=== PATIENT | male | born 1950 | race Caucasian/White ===

== ENCOUNTER 2017-12-17 10:06 | Inpatient (IN) | payer MEDICARE, MEDICAID ==
[2017-12-16 11:30] LABS: BASOPHILS # (AUTO) 0.1 X10'3 (0-0.2); BASOPHILS % (AUTO) 0.9 % (0-1); EOSINOPHILS # (AUTO) 0.4 X10'3 (0-0.9); EOSINOPHILS % (AUTO) 4.2 % (0-6); LYMPHOCYTES # (AUTO) 2.1 X10'3 (1.1-4.8); MEAN CORPUSCULAR HEMOGLOBIN 28.9 PG (27.0-31.0); MEAN CORPUSCULAR HGB CONC 32.9 % (33.0-36.5); MEAN CORPUSCULAR VOLUME 87.8 FL (78-98); MEAN PLATELET VOLUME 7.2 FL (7.4-10.4); MONOCYTES # (AUTO) 0.6 X10'3 (0-0.9); MONOCYTES % (AUTO) 7.6 % (2-12); NEUTROPHILS # (AUTO) 5.2 X10'3 (1.8-7.7); NEUTROPHILS % (AUTO) 62.3 % (42-75); PRE OP HEMATOCRIT 42.8 % (42.0-52.0); PRE OP HEMOGLOBIN 14.1 g/dL (14.0-17.9); PRE OP PLATELET COUNT 266 X10'3 (140-440); RED BLOOD COUNT 4.87 X10'6 (4.70-6.10); RED CELL DISTRIBUTION WIDTH 15.2 % (11.5-14.5)
[2017-12-16 11:32] LABS: COLOR,URINE YELLOW (Yellow); GLUCOSE, URINE NEGATIVE (Neg); KETONES,URINE NEGATIVE (Neg); LEUKOCYTE ESTERASE ,URINE NEGATIVE (Neg); NITRITES, URINE NEGATIVE (Neg); OCCULT BLOOD,URINE MODERATE (Neg); PH,URINE 5.5 (4.8-8.0); PROTEIN,URINE TRACE mg/dl (Neg); UROBILINOGEN,URINE 0.2 E.U/dL (0.2-1.0)
[2017-12-16 11:34] LABS: CLARITY,URINE SLIGHTLY CLOUDY (Clear); UA COLLECTION TYPE CLN CATCH MIDSTREAM
[2017-12-16 11:43] LABS: PRE OP INR 0.9 INR; PRE OP PROTIME 9.8 SECONDS (9.0-12.0)
[2017-12-16 11:45] LABS: ALBUMIN 3.7 G/DL (3.4-5.0); ALKALINE PHOSPHATASE 83 IU/L (46-116); BLOOD UREA NITROGEN 7 MG/DL (7-18); BUN/CREATININE RATIO 8.4 (5.4-32.0); CALCIUM 8.8 MG/DL (8.5-10.1); CHLORIDE 103 MMOL/L (99-107); CREATININE 0.83 MG/DL (0.60-1.10); PRE OP ALT 22 U/L (30-65); PRE OP ANION GAP 8 (8-16); PRE OP AST 18 U/L (10-37); PRE OP BILIRUB, TOTAL 0.9 MG/DL (0.0-1.0); PRE OP GLUCOSE 109 MG/DL (70-104); PRE OP POTASSIUM 3.8 MMOL/L (3.4-5.1); PRE OP SODIUM 141 MMOL/L (135-145); TOTAL PROTEIN 7.4 G/DL (6.4-8.2); eGFR > 90 ML/MIN
[2017-12-16 11:45] LABS: BACTERIA,URINE FEW /HPF (Neg); MUCUS STRANDS MODERATE /LPF (Neg); RBC,URINE NONE SEEN /HPF (0-2); SQUAMOUS EPITHELIAL CELL,UR FEW /LPF (FEW)
[~2017-12-17] VITALS: Ht 167.6 cm; Wt 65.4 kg
[~2017-12-17 10:06] MED LIST: ESCI10TA PO; ROSU10TA PO; clindamycin-Cleocin 900mg/D5W 50 ML IV ONE; famotidine 20mg tablet PO ONE; ringers solution, lacted 1,000 ML IV SCH
[2017-12-20] VITALS (12 sets, daily range): BP systolic 145–165; BP diastolic 64–86
[2017-12-20] MEDS ORDERED: ringers solution, lacted 1,000 ML IV SCH ×2 (06:30→17:05)
[2017-12-20] MEDS ORDERED: clindamycin-Cleocin 900mg/D5W 50 ML IV ONE (06:30)
[2017-12-20] MEDS ORDERED: famotidine 20mg tablet PO ONE (06:30)
[2017-12-20] MEDS ORDERED: LIDOcaine 1% (10mg/ml) 2ml vial ONE (11:17)
[2017-12-20] MEDS ORDERED: iohexol 300mg/ml 100ml inj. ONE (11:32)
[2017-12-20] MEDS ORDERED: midazolam 2 mg/2 ml injection ONE (13:58)
[2017-12-20] MEDS ORDERED: fentaNYL /PF 50mcg/ml 5ml ampule ONE (13:59)
[2017-12-20] MEDS ORDERED: LIDOcaine 2% (20mg/ml) 5ml vial ONE (14:00)
[2017-12-20] MEDS ORDERED: propofol inj 20 ML IV ONE (14:00)
[2017-12-20] MEDS ORDERED: rocuronium 10mg/ml inj IV ONE (14:00)
[2017-12-20] MEDS ORDERED: epiNEPHrine 0.1mg/ml 10ml syringe ONE (14:36)
[2017-12-20] MEDS ORDERED: sevoflurane 250ml liquid IH ONE (14:36)
[2017-12-20] MEDS ORDERED: propofol 10mg/ml 20ml vial IV ONE (14:36)
[2017-12-20] MEDS ORDERED: esmolol 10mg/ml inj IV ONE (14:36)
[2017-12-20] MEDS ORDERED: fentaNYL/PF 50MCG/1 ML 2ML syringe ONE ×2 (16:19→18:16)
[2017-12-20] MEDS ORDERED: ondansetron/PF 4mg/2ml inj IV PRN ×2 (17:05→19:20)
[2017-12-20] MEDS ORDERED: proCHLORperazine 10 MG/2 ml inj IV PRN (17:05)
[2017-12-20] MEDS ORDERED: morphine 4 MG/ML inj SYRINge IV PRN ×4 (17:05→19:20)
[2017-12-20] MEDS ORDERED: meperidine/PF 25mg/ml syringe IV PRN ×3 (17:05)
[2017-12-20] MEDS ORDERED: naloxone 2mg/2ml inj 1.5 MG in normal saline 500ml IV soln 500 ML IV PRN (17:06)
[2017-12-20] MEDS ORDERED: morphine/PF injection 20 MG, BUPIVAcaine 0.5% inj/PF 250 MG in normal saline 250ml IV s... EPI SCH (17:06)
[2017-12-20] MEDS ORDERED: sugammadex 200mg/2ml injection IV ONE (18:59)
[2017-12-20] MEDS ORDERED: metoclopramide 5 mg/ml inj IV PRN (19:20)
[2017-12-20] MEDS ORDERED: naloxone 0.4 mg/ml inj IV PRN (19:20)
[2017-12-20] MEDS ORDERED: CADD PCA waste documentation MC PRN (19:20)
[2017-12-20] MEDS ORDERED: HYDROcodone/acetaminophen 10/325mg tab PO PRN ×2 (19:20)
[2017-12-20] MEDS ORDERED: albuterol 2.5 MG/3 ML nebule NEB PRN (19:20)
[2017-12-20] MEDS ORDERED: ipratropium/albuterol 3ml nebule ONE (19:24)
[2017-12-20] MEDS ORDERED: ipratropium/albuterol 3ml nebule NEB PRN (19:25)
[2017-12-20] MEDS ORDERED: ondansetron/PF 4mg/2ml inj ONE (19:35)
[2017-12-20] MEDS ORDERED: glycopyrrolate 0.2mg/ml inj ONE (19:35)
[2017-12-20] MEDS ORDERED: neostigmine methylsulfate 1 MG/ML 10ml vial ONE (19:35)
[2017-12-20] MEDS ORDERED: labetalol 5mg/ml 20ml inj. IV ONE (19:36)
[2017-12-20 19:46] LABS: ABG BASE EXCESS -3.1 mmol/L (-2.0-3.0); ABG HCO3 23.3 mmol/L (22.0-26.0); ABG PH (T) 7.313 (7.350-7.450); ABG PO2 (T) 162.1 mmHg (83-108); FCOHb 0.6 % (0.5-1.5); FLOW 6 L/min; FMetHb 0.3 % (0.3-1.12); FO2Hb 98.1 % (94-100); RESPIRATORY RATE (OBSERVED) 12 b/min; TOTAL HEMOGLOBIN 13.5 G/dl (14.0-18.0)
[2017-12-20 19:47] LABS: BASOPHILS # (AUTO) 0.1 X10'3 (0-0.2); BASOPHILS % (AUTO) 0.8 % (0-1); EOSINOPHILS # (AUTO) 0.2 X10'3 (0-0.9); EOSINOPHILS % (AUTO) 1.9 % (0-6); HEMATOCRIT 38.4 % (42.0-52.0); HEMOGLOBIN 12.6 g/dl (14.0-17.9); LYMPHOCYTES # (AUTO) 0.9 X10'3 (1.1-4.8); MEAN CORPUSCULAR HEMOGLOBIN 28.8 PG (27.0-31.0); MEAN CORPUSCULAR HGB CONC 32.9 % (33.0-36.5); MEAN CORPUSCULAR VOLUME 87.8 FL (78-98); MEAN PLATELET VOLUME 7.3 FL (7.4-10.4); MONOCYTES # (AUTO) 0.5 X10'3 (0-0.9); MONOCYTES % (AUTO) 3.7 % (2-12); NEUTROPHILS % (AUTO) 86.6 % (42-75); PLATELET COUNT 261 X10'3 (140-440); RED BLOOD COUNT 4.37 X10'6 (4.70-6.10); RED CELL DISTRIBUTION WIDTH 15.1 % (11.5-14.5); WHITE BLOOD COUNT 12.7 X10'3 (4.5-11.0)
[2017-12-20 19:53] LABS: ANION GAP 6 (8-16); BLOOD UREA NITROGEN 6 MG/DL (7-18); BUN/CREATININE RATIO 8.3 (5.4-32.0); CALCIUM 7.9 MG/DL (8.5-10.1); CHLORIDE 105 MMOL/L (99-107); CREATININE 0.72 MG/DL (0.60-1.10); GLUCOSE 161 MG/DL (70-104); MAGNESIUM 1.7 MG/DL (1.5-2.4); POTASSIUM 3.8 MMOL/L (3.5-5.1); SODIUM 137 MMOL/L (135-145); TOTAL CARBON DIOXIDE 26.3 MMOL/L (24-32); eGFR > 90 ML/MIN
[2017-12-20] MEDS: clindamycin 600mg/D5W 50ml 50 ML IV SCH (21:10)
[2017-12-20] MEDS: potassium cl 20mEq in 1/2 NS 1,000 ML IV SCH (21:53)
[2017-12-21] VITALS (24 sets, daily range): BP systolic 123–166; BP diastolic 64–90
[2017-12-21 02:08] LABS: BASOPHILS % (AUTO) 0.3 % (0-1); EOSINOPHILS # (AUTO) 0.1 X10'3 (0-0.9); EOSINOPHILS % (AUTO) 0.9 % (0-6); HEMATOCRIT 39.4 % (42.0-52.0); LYMPHOCYTES # (AUTO) 0.7 X10'3 (1.1-4.8); LYMPHOCYTES % (AUTO) 5.9 % (21-51); MEAN CORPUSCULAR HEMOGLOBIN 28.9 PG (27.0-31.0); MEAN CORPUSCULAR HGB CONC 32.9 % (33.0-36.5); MEAN CORPUSCULAR VOLUME 87.7 FL (78-98); MEAN PLATELET VOLUME 7.6 FL (7.4-10.4); MONOCYTES # (AUTO) 0.7 X10'3 (0-0.9); MONOCYTES % (AUTO) 5.8 % (2-12); NEUTROPHILS % (AUTO) 87.1 % (42-75); PLATELET COUNT 257 X10'3 (140-440); RED BLOOD COUNT 4.49 X10'6 (4.70-6.10); RED CELL DISTRIBUTION WIDTH 14.7 % (11.5-14.5); WHITE BLOOD COUNT 12.6 X10'3 (4.5-11.0)
[2017-12-21 02:16] LABS: PHOSPHORUS 3.6 MG/DL (2.3-4.5); POTASSIUM 3.9 MMOL/L (3.5-5.1)
[2017-12-21] MEDS: clindamycin 600mg/D5W 50ml 50 ML IV SCH ×4 (02:16→19:43)
[2017-12-21 02:17] LABS: PROTHROMBIN TIME 10.1 SECONDS (9.0-12.0)
[2017-12-21 02:26] LABS: ANION GAP 9 (8-16); BLOOD UREA NITROGEN 8 MG/DL (7-18); BUN/CREATININE RATIO 11.1 (5.4-32.0); CHLORIDE 105 MMOL/L (99-107); CREATININE 0.72 MG/DL (0.60-1.10); GLUCOSE 182 MG/DL (70-104); SODIUM 141 MMOL/L (135-145); TOTAL CARBON DIOXIDE 26.7 MMOL/L (24-32); eGFR > 90 ML/MIN
[2017-12-21 02:45] LABS: MAGNESIUM 1.5 MG/DL (1.5-2.4)
[2017-12-21] MEDS ORDERED: MORPHINE EPI SCH ×2 (12:05→12:10)
[2017-12-21] MEDS ORDERED: NORMAL SALINE EPI SCH ×2 (12:05→12:10)
[2017-12-21] MEDS ORDERED: HYDROcodone/acetaminophen 10/325mg tab PO PRN (13:00)
[2017-12-21] MEDS ORDERED: furosemide 20 MG/2 ML vial IV ONE (13:00)
[2017-12-21] MEDS ORDERED: ipratropium/albuterol 3ml nebule NEB SCH (13:02)
[2017-12-21] MEDS: ipratropium/albuterol 3ml nebule NEB SCH ×3 (13:17→23:20)
[2017-12-21] MEDS: HYDROcodone/acetaminophen 10/325mg tab PO PRN (13:18)
[2017-12-21] MEDS: furosemide 20 MG/2 ML vial IV SCH (19:43)
[2017-12-21] MEDS: potassium cl 20mEq in 1/2 NS 1,000 ML IV SCH (19:49)
[2017-12-21] MEDS: ringers solution, lacted 1,000 ML IV SCH (19:49)
[2017-12-22] VITALS (24 sets, daily range): BP systolic 107–145; BP diastolic 61–84
[2017-12-22] MEDS: clindamycin 600mg/D5W 50ml 50 ML IV SCH ×4 (01:32→20:23)
[2017-12-22] MEDS: ringers solution, lacted 1,000 ML IV SCH (01:36)
[2017-12-22] MEDS: ipratropium/albuterol 3ml nebule NEB SCH ×6 (03:12→23:10)
[2017-12-22 05:02] LABS: BASOPHILS % (AUTO) 0.3 % (0-1); EOSINOPHILS # (AUTO) 0.2 X10'3 (0-0.9); EOSINOPHILS % (AUTO) 1.3 % (0-6); HEMATOCRIT 42.3 % (42.0-52.0); HEMOGLOBIN 13.8 g/dl (14.0-17.9); LYMPHOCYTES # (AUTO) 1.5 X10'3 (1.1-4.8); LYMPHOCYTES % (AUTO) 10.3 % (21-51); MEAN CORPUSCULAR HEMOGLOBIN 28.7 PG (27.0-31.0); MEAN CORPUSCULAR HGB CONC 32.5 % (33.0-36.5); MEAN CORPUSCULAR VOLUME 88.2 FL (78-98); MEAN PLATELET VOLUME 7.7 FL (7.4-10.4); MONOCYTES # (AUTO) 1.1 X10'3 (0-0.9); MONOCYTES % (AUTO) 7.4 % (2-12); NEUTROPHILS # (AUTO) 11.7 X10'3 (1.8-7.7); NEUTROPHILS % (AUTO) 80.7 % (42-75); PLATELET COUNT 233 X10'3 (140-440); RED BLOOD COUNT 4.79 X10'6 (4.70-6.10); RED CELL DISTRIBUTION WIDTH 15.3 % (11.5-14.5); WHITE BLOOD COUNT 14.5 X10'3 (4.5-11.0)
[2017-12-22 05:07] LABS: ALBUMIN 2.7 G/DL (3.4-5.0); ANION GAP 7 (8-16); BLOOD UREA NITROGEN 10 MG/DL (7-18); BUN/CREATININE RATIO 11.9 (5.4-32.0); CALCIUM 8.2 MG/DL (8.5-10.1); CHLORIDE 99 MMOL/L (99-107); CREATININE 0.84 MG/DL (0.60-1.10); GLUCOSE 123 MG/DL (70-104); MAGNESIUM 1.6 MG/DL (1.5-2.4); PHOSPHORUS 3.2 MG/DL (2.3-4.5); POTASSIUM 3.5 MMOL/L (3.5-5.1); PROTHROMBIN TIME 10.4 SECONDS (9.0-12.0); SODIUM 139 MMOL/L (135-145); TOTAL CARBON DIOXIDE 32.6 MMOL/L (24-32); eGFR > 90 ML/MIN
[2017-12-22] MEDS: furosemide 20 MG/2 ML vial IV SCH ×2 (07:37→20:23)
[2017-12-22] MEDS: HYDROcodone/acetaminophen 10/325mg tab PO PRN (07:38)
[2017-12-22] MEDS ORDERED: potassium Cl 20 mEq SR tablet PO PRN (09:20)
[2017-12-22] MEDS ORDERED: HYDROmorphone/NS 1 mg/ml CADD 50 ML IV SCH (09:20)
[2017-12-22] MEDS: magnesium 1gm/100ml D5W IVPB 100 ML IV SCH ×4 (10:55→14:22)
[2017-12-22] MEDS: potassium Cl 20 mEq SR tablet PO PRN ×3 (10:55→20:23)
[2017-12-22] MEDS: HYDROmorphone/NS 1 mg/ml CADD 50 ML IV SCH ×7 (13:00→23:00)
[2017-12-22] MEDS: lactobacillus rhamnosus 10,000 MMU CELLS/CAPSULE PO SCH (20:23)
[2017-12-23] VITALS (25 sets, daily range): BP systolic 11–128; BP diastolic 61–81
[2017-12-23] MEDS: HYDROmorphone/NS 1 mg/ml CADD 50 ML IV SCH ×12 (01:00→23:00)
[2017-12-23] MEDS: clindamycin 600mg/D5W 50ml 50 ML IV SCH ×4 (01:27→20:06)
[2017-12-23 03:09] LABS: BASOPHILS % (AUTO) 0.2 % (0-1); EOSINOPHILS # (AUTO) 0.2 X10'3 (0-0.9); EOSINOPHILS % (AUTO) 1.9 % (0-6); HEMATOCRIT 38.2 % (42.0-52.0); HEMOGLOBIN 12.6 g/dl (14.0-17.9); LYMPHOCYTES # (AUTO) 1.5 X10'3 (1.1-4.8); LYMPHOCYTES % (AUTO) 11.8 % (21-51); MEAN CORPUSCULAR HEMOGLOBIN 28.8 PG (27.0-31.0); MEAN CORPUSCULAR VOLUME 87.2 FL (78-98); MEAN PLATELET VOLUME 7.5 FL (7.4-10.4); MONOCYTES % (AUTO) 8.3 % (2-12); NEUTROPHILS # (AUTO) 9.7 X10'3 (1.8-7.7); NEUTROPHILS % (AUTO) 77.8 % (42-75); PLATELET COUNT 242 X10'3 (140-440); RED BLOOD COUNT 4.38 X10'6 (4.70-6.10); RED CELL DISTRIBUTION WIDTH 14.8 % (11.5-14.5); WHITE BLOOD COUNT 12.5 X10'3 (4.5-11.0)
[2017-12-23 03:11] LABS: ALBUMIN 2.3 G/DL (3.4-5.0); ANION GAP 1 (8-16); BLOOD UREA NITROGEN 10 MG/DL (7-18); BUN/CREATININE RATIO 12.5 (5.4-32.0); CALCIUM 8.1 MG/DL (8.5-10.1); CHLORIDE 96 MMOL/L (99-107); GLUCOSE 125 MG/DL (70-104); MAGNESIUM 2.5 MG/DL (1.5-2.4); PHOSPHORUS 2.9 MG/DL (2.3-4.5); POTASSIUM 3.8 MMOL/L (3.5-5.1); SODIUM 135 MMOL/L (135-145); TOTAL CARBON DIOXIDE 38.2 MMOL/L (24-32); eGFR > 90 ML/MIN
[2017-12-23] MEDS: ipratropium/albuterol 3ml nebule NEB SCH ×6 (03:30→23:24)
[2017-12-23 03:39] LABS: PROTHROMBIN TIME 9.7 SECONDS (9.0-12.0)
[2017-12-23] MEDS: potassium cl 20mEq in 1/2 NS 1,000 ML IV SCH (07:49)
[2017-12-23] MEDS: K and/or MAG REPLACEMENT MC SCH (08:00)
[2017-12-23] MEDS: furosemide 20 MG/2 ML vial IV SCH ×2 (08:27→20:06)
[2017-12-23] MEDS: lactobacillus rhamnosus 10,000 MMU CELLS/CAPSULE PO SCH ×2 (08:27→20:06)
[2017-12-23 09:25] LABS: HEMOGLOBIN A1C 5.4 % (4.5-6.2)
[2017-12-23] MEDS ORDERED: ketorolac tromethamine 15mg/ml inj. IV PRN (13:00)
[2017-12-23] MEDS: HYDROcodone/acetaminophen 10/325mg tab PO PRN (14:16)
[2017-12-23] MEDS: ringers solution, lacted 1,000 ML IV SCH (17:45)
[2017-12-24] VITALS (23 sets, daily range): BP systolic 95–134; BP diastolic 59–77
[2017-12-24] MEDS: HYDROmorphone/NS 1 mg/ml CADD 50 ML IV SCH ×12 (01:00→23:00)
[2017-12-24] MEDS: clindamycin 600mg/D5W 50ml 50 ML IV SCH ×4 (01:52→19:23)
[2017-12-24 02:54] LABS: BASOPHILS # (AUTO) 0.1 X10'3 (0-0.2); BASOPHILS % (AUTO) 0.8 % (0-1); EOSINOPHILS # (AUTO) 0.5 X10'3 (0-0.9); EOSINOPHILS % (AUTO) 5.3 % (0-6); HEMATOCRIT 36.2 % (42.0-52.0); HEMOGLOBIN 11.9 g/dl (14.0-17.9); LYMPHOCYTES # (AUTO) 1.2 X10'3 (1.1-4.8); LYMPHOCYTES % (AUTO) 12.3 % (21-51); MEAN CORPUSCULAR HEMOGLOBIN 28.8 PG (27.0-31.0); MEAN CORPUSCULAR HGB CONC 32.9 % (33.0-36.5); MEAN CORPUSCULAR VOLUME 87.6 FL (78-98); MEAN PLATELET VOLUME 7.2 FL (7.4-10.4); MONOCYTES % (AUTO) 9.8 % (2-12); NEUTROPHILS # (AUTO) 7.2 X10'3 (1.8-7.7); NEUTROPHILS % (AUTO) 71.8 % (42-75); PLATELET COUNT 262 X10'3 (140-440); RED BLOOD COUNT 4.13 X10'6 (4.70-6.10); RED CELL DISTRIBUTION WIDTH 14.5 % (11.5-14.5); WHITE BLOOD COUNT 10.1 X10'3 (4.5-11.0)
[2017-12-24 03:10] LABS: ALBUMIN 2.1 G/DL (3.4-5.0); ANION GAP 9 (8-16); BLOOD UREA NITROGEN 13 MG/DL (7-18); BUN/CREATININE RATIO 16.5 (5.4-32.0); CALCIUM 8.3 MG/DL (8.5-10.1); CHLORIDE 95 MMOL/L (99-107); CREATININE 0.79 MG/DL (0.60-1.10); GLUCOSE 112 MG/DL (70-104); MAGNESIUM 2.1 MG/DL (1.5-2.4); PHOSPHORUS 4.4 MG/DL (2.3-4.5); POTASSIUM 3.3 MMOL/L (3.5-5.1); SODIUM 137 MMOL/L (135-145); TOTAL CARBON DIOXIDE 32.7 MMOL/L (24-32); eGFR > 90 ML/MIN
[2017-12-24] MEDS: ipratropium/albuterol 3ml nebule NEB SCH ×6 (03:21→22:59)
[2017-12-24] MEDS: potassium Cl 20 mEq SR tablet PO PRN ×3 (05:09→13:35)
[2017-12-24 06:06] LABS: INR 0.9 INR; PROTHROMBIN TIME 9.5 SECONDS (9.0-12.0)
[2017-12-24] MEDS: lactobacillus rhamnosus 10,000 MMU CELLS/CAPSULE PO SCH ×2 (07:29→19:24)
[2017-12-24] MEDS: furosemide 20 MG/2 ML vial IV SCH ×2 (07:29→19:24)
[2017-12-24] MEDS: HYDROcodone/acetaminophen 10/325mg tab PO PRN ×2 (07:30→19:25)
[2017-12-24] MEDS: enoxaparin 40mg/0.4ml syringe SUBCUT SCH (07:33)
[2017-12-24] MEDS: K and/or MAG REPLACEMENT MC SCH (08:00)
[2017-12-24] MEDS: magnesium hydroxide 30ml (MOM) UD suspension PO SCH (19:23)
[2017-12-25] VITALS (24 sets, daily range): BP systolic 97–153; BP diastolic 57–84
[2017-12-25] MEDS: HYDROmorphone/NS 1 mg/ml CADD 50 ML IV SCH ×12 (02:00→23:00)
[2017-12-25] MEDS: clindamycin 600mg/D5W 50ml 50 ML IV SCH ×4 (02:03→20:28)
[2017-12-25] MEDS: ipratropium/albuterol 3ml nebule NEB SCH ×6 (02:55→22:41)
[2017-12-25 04:10] LABS: BASOPHILS % (AUTO) 0.5 % (0-1); EOSINOPHILS # (AUTO) 0.4 X10'3 (0-0.9); HEMATOCRIT 34.8 % (42.0-52.0); HEMOGLOBIN 11.5 g/dl (14.0-17.9); LYMPHOCYTES # (AUTO) 1.4 X10'3 (1.1-4.8); LYMPHOCYTES % (AUTO) 15.9 % (21-51); MEAN CORPUSCULAR HEMOGLOBIN 28.8 PG (27.0-31.0); MEAN CORPUSCULAR VOLUME 87.1 FL (78-98); MEAN PLATELET VOLUME 7.3 FL (7.4-10.4); MONOCYTES % (AUTO) 11.7 % (2-12); NEUTROPHILS # (AUTO) 5.9 X10'3 (1.8-7.7); NEUTROPHILS % (AUTO) 66.9 % (42-75); PLATELET COUNT 296 X10'3 (140-440); RED CELL DISTRIBUTION WIDTH 15.1 % (11.5-14.5); WHITE BLOOD COUNT 8.8 X10'3 (4.5-11.0)
[2017-12-25 04:24] LABS: MAGNESIUM 2.1 MG/DL (1.5-2.4); PHOSPHORUS 4.1 MG/DL (2.3-4.5); POTASSIUM 3.3 MMOL/L (3.5-5.1)
[2017-12-25 04:33] LABS: INR 0.9 INR; PROTHROMBIN TIME 9.5 SECONDS (9.0-12.0)
[2017-12-25] MEDS: potassium cl 20mEq in 1/2 NS 1,000 ML IV SCH (07:49)
[2017-12-25] MEDS: enoxaparin 40mg/0.4ml syringe SUBCUT SCH (08:13)
[2017-12-25] MEDS: lactobacillus rhamnosus 10,000 MMU CELLS/CAPSULE PO SCH ×2 (08:13→20:29)
[2017-12-25] MEDS: potassium Cl 20 mEq SR tablet PO PRN (08:13)
[2017-12-25] MEDS: furosemide 20 MG/2 ML vial IV SCH ×2 (08:13→20:28)
[2017-12-25] MEDS: magnesium hydroxide 30ml (MOM) UD suspension PO SCH ×3 (08:13→20:29)
[2017-12-25] MEDS: K and/or MAG REPLACEMENT MC SCH (08:19)
[2017-12-25] MEDS ORDERED: amiodarone/D5 360MG/200ML BAG 200 ML IV ONE (08:34)
[2017-12-25] MEDS ORDERED: amiodarone 150mg/dext, iso-os 100 ML IV ONE ×2 (08:35)
[2017-12-25] MEDS: amiodarone/D5 360MG/200ML BAG 200 ML IV SCH ×3 (08:59→23:45)
[2017-12-25] MEDS: ringers solution, lacted 1,000 ML IV SCH (17:45)
[2017-12-25] MEDS: CADD PCA waste documentation MC SCH (18:47)
[2017-12-26] VITALS (24 sets, daily range): BP systolic 90–151; BP diastolic 55–78
[2017-12-26] MEDS: HYDROmorphone/NS 1 mg/ml CADD 50 ML IV SCH ×11 (01:00→21:00)
[2017-12-26] MEDS: clindamycin 600mg/D5W 50ml 50 ML IV SCH ×4 (02:00→19:25)
[2017-12-26] MEDS: amiodarone/D5 360MG/200ML BAG 200 ML IV SCH ×4 (02:45→20:57)
[2017-12-26] MEDS: ipratropium/albuterol 3ml nebule NEB SCH ×6 (03:00→22:41)
[2017-12-26 06:14] LABS: BASOPHILS % (AUTO) 0.4 % (0-1); EOSINOPHILS # (AUTO) 0.3 X10'3 (0-0.9); EOSINOPHILS % (AUTO) 3.4 % (0-6); HEMATOCRIT 35.8 % (42.0-52.0); HEMOGLOBIN 11.8 g/dl (14.0-17.9); LYMPHOCYTES % (AUTO) 10.6 % (21-51); MEAN CORPUSCULAR HEMOGLOBIN 28.8 PG (27.0-31.0); MEAN CORPUSCULAR HGB CONC 32.9 % (33.0-36.5); MEAN CORPUSCULAR VOLUME 87.6 FL (78-98); MEAN PLATELET VOLUME 7.4 FL (7.4-10.4); MONOCYTES # (AUTO) 1.1 X10'3 (0-0.9); MONOCYTES % (AUTO) 12.1 % (2-12); NEUTROPHILS # (AUTO) 6.9 X10'3 (1.8-7.7); NEUTROPHILS % (AUTO) 73.5 % (42-75); PLATELET COUNT 304 X10'3 (140-440); RED BLOOD COUNT 4.09 X10'6 (4.70-6.10); RED CELL DISTRIBUTION WIDTH 15.1 % (11.5-14.5); WHITE BLOOD COUNT 9.3 X10'3 (4.5-11.0)
[2017-12-26 06:54] LABS: ANION GAP 5 (8-16); BLOOD UREA NITROGEN 10 MG/DL (7-18); BUN/CREATININE RATIO 13.2 (5.4-32.0); CALCIUM 8.6 MG/DL (8.5-10.1); CHLORIDE 94 MMOL/L (99-107); CREATININE 0.76 MG/DL (0.60-1.10); GLUCOSE 123 MG/DL (70-104); MAGNESIUM 2.3 MG/DL (1.5-2.4); PHOSPHORUS 4.1 MG/DL (2.3-4.5); POTASSIUM 3.6 MMOL/L (3.5-5.1); SODIUM 137 MMOL/L (135-145); TOTAL CARBON DIOXIDE 38.1 MMOL/L (24-32); eGFR > 90 ML/MIN
[2017-12-26 06:59] LABS: INR 0.9 INR; PROTHROMBIN TIME 9.4 SECONDS (9.0-12.0)
[2017-12-26] MEDS: lactobacillus rhamnosus 10,000 MMU CELLS/CAPSULE PO SCH ×2 (08:10→19:27)
[2017-12-26] MEDS: magnesium hydroxide 30ml (MOM) UD suspension PO SCH ×2 (08:10→19:27)
[2017-12-26] MEDS: enoxaparin 40mg/0.4ml syringe SUBCUT SCH (08:11)
[2017-12-26] MEDS: furosemide 20 MG/2 ML vial IV SCH ×2 (08:11→19:26)
[2017-12-26] MEDS ORDERED: amiodarone 200mg tablet PO ONE (11:50)
[2017-12-26] MEDS: amiodarone 200mg tablet PO SCH (19:27)
[2017-12-26] MEDS: HYDROcodone/acetaminophen 10/325mg tab PO PRN (19:28)
[2017-12-27] VITALS (24 sets, daily range): BP systolic 99–135; BP diastolic 55–78
[2017-12-27] MEDS: HYDROmorphone/NS 1 mg/ml CADD 50 ML IV SCH ×7 (00:09→11:00)
[2017-12-27] MEDS: clindamycin 600mg/D5W 50ml 50 ML IV SCH ×2 (01:57→08:04)
[2017-12-27] MEDS: ipratropium/albuterol 3ml nebule NEB SCH ×6 (02:51→23:47)
[2017-12-27] MEDS: amiodarone/D5 360MG/200ML BAG 200 ML IV SCH ×2 (03:01→09:05)
[2017-12-27 05:28] LABS: BASOPHILS % (AUTO) 0.4 % (0-1); EOSINOPHILS # (AUTO) 0.4 X10'3 (0-0.9); EOSINOPHILS % (AUTO) 3.6 % (0-6); HEMATOCRIT 35.1 % (42.0-52.0); HEMOGLOBIN 11.5 g/dl (14.0-17.9); LYMPHOCYTES % (AUTO) 9.5 % (21-51); MEAN CORPUSCULAR HEMOGLOBIN 28.8 PG (27.0-31.0); MEAN CORPUSCULAR HGB CONC 32.9 % (33.0-36.5); MEAN CORPUSCULAR VOLUME 87.4 FL (78-98); MEAN PLATELET VOLUME 7.3 FL (7.4-10.4); MONOCYTES % (AUTO) 9.5 % (2-12); NEUTROPHILS # (AUTO) 7.7 X10'3 (1.8-7.7); PLATELET COUNT 317 X10'3 (140-440); RED BLOOD COUNT 4.01 X10'6 (4.70-6.10); RED CELL DISTRIBUTION WIDTH 15.3 % (11.5-14.5)
[2017-12-27 05:43] LABS: MAGNESIUM 2.4 MG/DL (1.5-2.4); PHOSPHORUS 4.5 MG/DL (2.3-4.5); POTASSIUM 3.7 MMOL/L (3.5-5.1)
[2017-12-27 06:02] LABS: INR 0.9 INR; PROTHROMBIN TIME 9.2 SECONDS (9.0-12.0)
[2017-12-27] MEDS: potassium cl 20mEq in 1/2 NS 1,000 ML IV SCH (07:49)
[2017-12-27] MEDS: magnesium hydroxide 30ml (MOM) UD suspension PO SCH ×2 (08:03→20:00)
[2017-12-27] MEDS: enoxaparin 40mg/0.4ml syringe SUBCUT SCH (08:03)
[2017-12-27] MEDS: lactobacillus rhamnosus 10,000 MMU CELLS/CAPSULE PO SCH ×2 (08:03→20:21)
[2017-12-27] MEDS: furosemide 20 MG/2 ML vial IV SCH (08:03)
[2017-12-27] MEDS: amiodarone 200mg tablet PO SCH ×2 (08:04→20:21)
[2017-12-27] MEDS: CADD PCA waste documentation MC SCH (14:01)
[2017-12-27] MEDS: NUT.TX.IMPAIRED DIGEST FXN (Ensure Clear) 237 ML PO SCH (18:00)
[2017-12-27] MEDS: ondansetron/PF 4mg/2ml inj IV PRN (19:26)
[2017-12-27] MEDS: HYDROcodone/acetaminophen 10/325mg tab PO PRN (20:23)
[2017-12-28] VITALS (17 sets, daily range): BP systolic 96–143; BP diastolic 46–81
[2017-12-28] MEDS: HYDROcodone/acetaminophen 10/325mg tab PO PRN (02:05)
[2017-12-28] MEDS: ipratropium/albuterol 3ml nebule NEB SCH ×4 (03:30→15:07)
[2017-12-28 06:01] LABS: BASOPHILS % (AUTO) 0.5 % (0-1); EOSINOPHILS # (AUTO) 0.3 X10'3 (0-0.9); EOSINOPHILS % (AUTO) 3.2 % (0-6); HEMATOCRIT 33.6 % (42.0-52.0); HEMOGLOBIN 11.1 g/dl (14.0-17.9); LYMPHOCYTES # (AUTO) 1.2 X10'3 (1.1-4.8); LYMPHOCYTES % (AUTO) 14.4 % (21-51); MEAN CORPUSCULAR HEMOGLOBIN 28.7 PG (27.0-31.0); MEAN CORPUSCULAR HGB CONC 32.9 % (33.0-36.5); MEAN CORPUSCULAR VOLUME 87.1 FL (78-98); MEAN PLATELET VOLUME 7.4 FL (7.4-10.4); MONOCYTES # (AUTO) 0.9 X10'3 (0-0.9); MONOCYTES % (AUTO) 10.3 % (2-12); NEUTROPHILS # (AUTO) 6.2 X10'3 (1.8-7.7); NEUTROPHILS % (AUTO) 71.6 % (42-75); PLATELET COUNT 343 X10'3 (140-440); RED BLOOD COUNT 3.86 X10'6 (4.70-6.10); RED CELL DISTRIBUTION WIDTH 15.3 % (11.5-14.5); WHITE BLOOD COUNT 8.6 X10'3 (4.5-11.0)
[2017-12-28 06:18] LABS: INR 0.9 INR; PROTHROMBIN TIME 9.4 SECONDS (9.0-12.0)
[2017-12-28 06:31] LABS: ALANINE AMINOTRANSFERASE 25 U/L (12-78); ALBUMIN/GLOBULIN RATIO 0.5 (1.1-1.5); ALKALINE PHOSPHATASE 83 IU/L (46-116); ANION GAP 4 (8-16); ASPARTATE AMINO TRANSFERASE 28 U/L (10-37); BILIRUBIN,TOTAL 0.6 MG/DL (0.1-1.0); BLOOD UREA NITROGEN 10 MG/DL (7-18); BUN/CREATININE RATIO 14.9 (5.4-32.0); CALCIUM 8.6 MG/DL (8.5-10.1); CHLORIDE 94 MMOL/L (99-107); CREATININE 0.67 MG/DL (0.60-1.10); GLUCOSE 100 MG/DL (70-104); MAGNESIUM 2.4 MG/DL (1.5-2.4); PHOSPHORUS 3.9 MG/DL (2.3-4.5); POTASSIUM 3.3 MMOL/L (3.5-5.1); SODIUM 135 MMOL/L (135-145); TOTAL CARBON DIOXIDE 36.7 MMOL/L (24-32); TOTAL PROTEIN 6.4 G/DL (6.4-8.2); eGFR > 90 ML/MIN
[2017-12-28] MEDS: ondansetron/PF 4mg/2ml inj IV PRN (08:29)
[2017-12-28] MEDS: magnesium hydroxide 30ml (MOM) UD suspension PO SCH (08:29)
[2017-12-28] MEDS: NUT.TX.IMPAIRED DIGEST FXN (Ensure Clear) 237 ML PO SCH ×2 (08:29→13:00)
[2017-12-28] MEDS: lactobacillus rhamnosus 10,000 MMU CELLS/CAPSULE PO SCH (08:29)
[2017-12-28] MEDS: enoxaparin 40mg/0.4ml syringe SUBCUT SCH (08:30)
[2017-12-28] MEDS: amiodarone 200mg tablet PO SCH (12:16)
== END 2017-12-28 17:45 | disposition home or self-care (01) | DRG 165 ==
LOC: EDSTATUS 11:45 → PAS IN 12-20 10:37 → EDSTATUS 12-20 12:30 → ICU 2S 12-20 20:10
PROVIDERS: ADMIT Surgery; ATTEND Surgery
PROC: 0B5N0ZZ Destruction of Right Pleura, Open Approach (ICD-10-PCS; 2017-12-20)
PROC: 07B70ZZ Excision of Thorax Lymphatic, Open Approach (ICD-10-PCS; 2017-12-20)
PROC: 0BJ08ZZ Inspection of Tracheobronchial Tree, Via Natural or Artificial Opening Endoscopic (ICD-10-PCS; 2017-12-20)
PROC: 0W9900Z Drainage of Right Pleural Cavity with Drainage Device, Open Approach (ICD-10-PCS; 2017-12-20)
PROC: 02HV33Z Insertion of Infusion Device into Superior Vena Cava, Percutaneous Approach (ICD-10-PCS; 2017-12-20)
PROC: B548ZZA Ultrasonography of Superior Vena Cava, Guidance (ICD-10-PCS; 2017-12-20)
PROC: 0BTC0ZZ Resection of Right Upper Lung Lobe, Open Approach (ICD-10-PCS; principal; 2017-12-20 14:36)
DX: C34.11 Malignant neoplasm of upper lobe, right bronchus or lung (principal); J44.9 Chronic obstructive pulmonary disease, unspecified; Z90.49 Acquired absence of other specified parts of digestive tract; Z88.8 Allergy status to other drugs, medicaments and biological substances; Z87.891 Personal history of nicotine dependence; Z85.038 Personal history of other malignant neoplasm of large intestine; Z85.841 Personal history of malignant neoplasm of brain
CPT/HCPCS: 36415; 36600; 71045; 71046; 71260; 80048; 80053; 81001; 82803; 82948; 83036; 83735; 84100; 84132; 85018; 85025; 85610; 85730; 86885; 86900; 86901; 86920; 87070; 87088; 93005; 94640; 94667; 94668; 94760; 97110; 97116; 97161; 97530; A6251; A6255; A6258; A6449; A7000; A7048; C1758; C9250; C9399; G0378; J0171; J0282; J1170; J1650; J1885; J1940; J2001; J2250; J2274; J2405; J2704; J2710; J3010; J3490; J7030; J7120; Q9967